=== PATIENT | female | born 1995 | race Two or more races ===

== ENCOUNTER 2018-01-10 13:33 | Emergency (ER) | payer OTHER ==
[~2018-01-10] VITALS: Ht 170.2 cm; Wt 55.8 kg
== END 2018-01-10 17:24 | disposition home or self-care (01) ==
LOC: ER 13:33
DX: Z20.89 Contact with and (suspected) exposure to other communicable diseases (principal)

== ENCOUNTER 2018-01-30 22:11 | Emergency (ER) | payer OTHER ==
[~2018-01-30] VITALS: Ht 170.2 cm; Wt 55.3 kg
== END 2018-01-31 02:04 ==
LOC: ER 22:11
DX: R07.89 Other chest pain (principal); R06.02 Shortness of breath; F06.4 Anxiety disorder due to known physiological condition

== ENCOUNTER 2018-01-31 08:48 | Emergency (ER) | payer OTHER ==
[~2018-01-31] VITALS: Ht 170.2 cm; Wt 55.8 kg
== END 2018-01-31 11:25 | disposition home or self-care (01) ==
LOC: ER 08:48
DX: R06.02 Shortness of breath (principal); R07.9 Chest pain, unspecified; F06.4 Anxiety disorder due to known physiological condition